=== PATIENT | male | born 2000 | race Caucasian/White ===

== ENCOUNTER 2021-08-01 17:59 | Inpatient (IN) ==
[2021-08-01] MEDS ORDERED: SODIUM CHLORIDE 0.9% 1000ML 1,000 ML IV ONE (18:39)
[2021-08-01] MEDS ORDERED: ASPIRIN CHEW 324 MG PO STA (18:39)
--- NOTE | 2021-08-01 18:39 | Emergency Department Note ---
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 This was followed by an unroofing procedure and an ICD placed who presents to the ER for feeling palpitations in his chest while exercising. Just prior to this he felt his heart beating weird. He denies any headache or change in vision. No chest pain or shortness of breath currently. Chest pain abated after he felt the palpitations and then a shock in his chest. no belly pain, nausea, vomiting, or diarrhea. No dysuria, urgency, or frequency. He does have a [employer] device in place. ROS: See above HPI for pertinent positives & negatives. A total of 10 systems reviewed and were otherwise negative. PAST MEDICAL HISTORY:See Below PAST SURGICAL HISTORY:See Below FAMILY HISTORY:See Below SOCIAL HISTORY:See Below HOME MEDICATIONS:See Below ALLERGIES:See Below VITALS:See Below PHYSICAL EXAMINATION: GENERAL: Sitting up in bed, alert, well appearing, well nourished, no distress, non-toxic EYE EXAM: normal conjunctiva. PERRL and EOM's grossly intact. OROPHARYNX: no exudate, no erythema, lips, buccal mucosa, and tongue normal and mucous membranes are moist NECK: supple, no nuchal rigidity, no adenopathy, non-tender LUNGS: Clear to auscultation. Normal chest wall mechanics HEART: no murmurs, S1 normal and S2 normal ABDOMEN: abdomen soft, non-tender, normo-active bowel sounds, no masses, no rebound or guarding. UPPER EXTREMITIES: upper extremities are grossly normal. LOWER EXTREMITIES: No pitting edema. NEURO EXAM: Normal sensorium, cranial nerves II-XII grossly intact, normal speech, no gross weakness of arms, no gross weakness of legs. MEDICAL DECISION MAKING: Patient is a 21-year-old male with extensive cardiac history including an anomalous left coronary artery with cardiac arrest, unroofing procedure, ICD placement who presents the ER for exertional palpitations followed by shock. IV was established blood work was obtained. Labs showed no significant leukocytosis or anemia. BMP along with LFTs bilirubin was unremarkable. Troponin was negative. Lipase was negative. Covid was negative. Chest x-ray was clean. EKG showed a sinus tach with nonspecific ST wave changes. Patient was given IV fluids. Heart rate trended down. Discussed with [employer]. We have no way interrogating it here as her machine for [employer] is not working. 3 people within the [employer] interrogation service are sick with Covid. There is no one close by. They will not be able to get here till least tomorrow morning. With this in his extensive cardiac history case was discussed with the hospitalist for further observation. Triage Nursing notes reviewed. Limited review of prior medical records performed Vital Signs: reviewed and remarkable for tachy Differential diagnosis: Differential diagnoses includes but is not limited to acute coronary syndrome, myocardial infarction, pericarditis, pulmonary embolus, aortic dissection, pneumonia, pneumothorax, musculoskeletal, shingles, esophageal. ER treatment provided: See below Diagnostics interpreted by me: ECG: Sinus tachycardia rate of 105 Normal axis Right bundle branch block T wave inversion V1 through V5 ST wave changes in the inferior septal anterior and lateral leads Cardiac Monitoring: An order was placed for continuous cardiac monitoring. The monitor shows a rate of 105 with sinus rhythm. Laboratory studies: As stated above and show below. Imaging studies: Chest x-ray was clean Consultation(s): none Procedures: none Critical Care: None Past Med/Surg History Surgical History (Updated 08/01/21 @ 20:12 by Lisa Hadley DO) AICD (automatic cardioverter/defibrillator) present History of open heart surgery Family History (Updated 08/01/21 @ 20:12 by Lisa Hadley DO) Other No significant family history Social History Smoking Status: Never smoker Feels Safe at Home: Yes Allergies Allergies Allergy/AdvReac Type Severity Reaction Status Date / Time azithromycin AdvReac Rash Unverified 08/01/21 18:51 chlorhexidine AdvReac Rash Unverified 08/01/21 18:51 Home Meds Home Medications Medication Instructions Recorded Confirmed ascorbic acid (vitamin C) 100 mg 0 mg PO DAILY 08/01/21 08/01/21 tablet (Vitamin C) aspirin 81 mg tablet,delayed 81 mg PO DAILY 08/01/21 08/01/21 release Results & Data (ED) Vital Signs Vital Signs - 24 hr 08/01/21 18:14 08/01/21 18:40 08/01/21 18:49 Temperature 36.6 C Temperature Source Temporal Artery Scan Pulse Rate 123 H Pulse Rate [Apical] Respiratory Rate 16 Respiratory Effort / Characteristics Non-Labored Respiratory Depth Normal Blood Pressure 138/85 Blood Pressure [Left Arm] Blood Pressure Mean 102 Blood Pressure Mean [Left Arm] Pulse Oximetry 99 Oxygen Delivery Method Room Air Room Air Room Air Sepsis Recent Fever Within 48 Hours No Sepsis New/Unexplained Change in Mental Status No Sepsis Action Taken by Nursing No Action Required 08/01/21 19:00 08/01/21 20:00 Temperature Temperature Source Pulse Rate Pulse Rate [Apical] 88 91 H Respiratory Rate 16 16 Respiratory Effort / Characteristics Non-Labored Spontaneous Non-Labored Spontaneous Respiratory Depth Normal Normal Blood Pressure Blood Pressure [Left Arm] 130/92 132/86 Blood Pressure Mean Blood Pressure Mean [Left Arm] 104 101 Pulse Oximetry 100 99 Oxygen Delivery Method Room Air Room Air Sepsis Recent Fever Within 48 Hours Sepsis New/Unexplained Change in Mental Status Sepsis Action Taken by Nursing Laboratory Data Result diagrams: 08/01/21 18:25 08/01/21 18:25 Lab Results 08/01/21 08/01/21 08/01/21 Range/Units 18:25 18:25 19:11 WBC 9.07 (4.8-10.8) K/uL RBC 5.41 (4.7-6.1) M/uL Hgb 16.2 (14.0-18.0) g/dL Hct 46.6 (42-52) % MCV 86.1 (80-100) fL MCH 29.9 (25-34) pg MCHC 34.8 (32-36) g/dL RDW Std Deviation 40.1 (36.4-46.3) fL RDW Coeff of Dao 12.6 (11.5-14.5) % Plt Count 231 (130-400) K/uL MPV 10.9 H (7.4-10.4) fL Immature Gran % (Auto) 0.2 % Neut % (Auto) 68.0 % Lymph % (Auto) 23.3 % [place] % (Auto) 6.3 % Eos % (Auto) 2.0 % Baso % (Auto) 0.2 % Neut # (Auto) 6.17 (1.4-6.5) K/uL Lymph # (Auto) 2.11 (1.2-3.4) K/uL [place] # (Auto) 0.57 (0.11-0.59) K/uL Eos # (Auto) 0.18 (0-0.5) K/uL Baso # (Auto) 0.02 (0-0.2) K/uL Immature Gran # (Auto) 0.02 (0.00-0.02) K/uL Sodium 139 (136-145) mmol/L Potassium 3.5 (3.5-5.1) mmol/L Chloride 106 (98-107) mmol/L Carbon Dioxide 27 (21-32) mmol/L Anion Gap 6.0 (3-11) BUN 12 (7-18) mg/dl Creatinine 1.18 (0.6-1.4) mg/dl Est Cr Clr Drug Dosing 94.6 ml/min Est GFR ( Amer) 102.3 ml/min Est GFR (Non-Af Amer) 88.3 ml/min BUN/Creatinine Ratio 9.9 L (10-20) Glucose 116 H (70-99) mg/dl Calcium 9.3 (8.5-10.1) mg/dl Total Bilirubin 0.5 (0.2-1) mg/dl AST 33 (15-37) U/L ALT 44 (12-78) Alkaline Phosphatase 85 (45-117) U/L Troponin I < 0.015 (0-0.045) ng/ml Total Protein 8.1 (6.4-8.2) gm/dl Albumin 4.4 (3.4-5.0) gm/dl Globulin 3.7 (2.5-4.0) gm/dl Albumin/Globulin Ratio 1.2 (0.9-2) Lipase 142 (73-393) U/L SARS-CoV-2, RNA, NAAT NEGATIVE (NEGATIVE) Administered Medications Discontinued Medications Aspirin (Aspirin Chew 324 Mg) 324 mg PO NOW STA Stop: 08/01/21 18:40 Last Admin: 08/01/21 18:49 Dose: 324 mg Documented by: [id number] Sodium Chloride (Nss 1000ml) 1,000 mls @ 999 mls/hr IV .Q1H1M ONE Stop: 08/01/21 19:39 Last Infusion: 08/01/21 19:59 Dose: 0 mls/hr Documented by: [id number] Admin: 08/01/21 18:49 Dose: 999 mls/hr Documented by: [id number] Imaging Data Radiologist's Impression: Chest X-Ray 08/01/21 18:35 XR chest 1V portable HISTORY: Atypical Chest Pain COMPARISON: None. FINDINGS: The heart is normal in size. There are poststernotomy changes and a left-sided external pacemaker. No pneumothorax. No pleural effusions. The lungs are clear. No evidence for pulmonary edema. No rib fractures. IMPRESSION: No acute process. ACT 112: Negative or not required by law. Electronically signed by: Alex Guy M.D. 08/01/2021 6:50 PM Discharge Plan Visit Data Chief Complaint: Cardiac Assessment Stated Complaint: [employer]IN[employer] APPLICATIONS DEVELOPER'L DEFIBRILLATOR WENT OFF-NEEDS CHECKED ED Provider: Sean Mendez Prescriptions Prescriptions: No Action aspirin 81 mg Tablet,Delayed Release (Dr/Ec) 81 mg PO DAILY RF: 0 Vitamin C 100 mg Tablet 0 mg PO DAILY RF: 0
[2021-08-01 18:46] LABS: Basophils # (auto) 0.02 K/uL (0-0.2); Basophils % (auto) 0.2 %; Eosinophils # (auto) 0.18 K/uL (0-0.5); Hematocrit (blood only) 46.6 % (42-52); Hemoglobin 16.2 g/dL (14.0-18.0); Immature Granulocytes # (auto) 0.02 K/uL (0.00-0.02); Immature Granulocytes % (auto) 0.2 %; Lymphocytes # (auto) 2.11 K/uL (1.2-3.4); Lymphocytes % (auto) 23.3 %; Mean Corpuscular Hemoglobin 29.9 pg (25-34); Mean Corpuscular Hgb Conc 34.8 g/dL (32-36); Mean Corpuscular Volume 86.1 fL (80-100); Mean Platelet Volume 10.9 fL (7.4-10.4); Monocytes # (auto) 0.57 K/uL (0.11-0.59); Monocytes % (auto) 6.3 %; Neutrophils # (auto) 6.17 K/uL (1.4-6.5); Platelet Count 231 K/uL (130-400); RDW Coefficient of Variation 12.6 % (11.5-14.5); RDW Standard Deviation 40.1 fL (36.4-46.3); Red Blood Count 5.41 M/uL (4.7-6.1); White Blood Count 9.07 K/uL (4.8-10.8)
--- NOTE | 2021-08-01 18:51 | XRay Report ---
XR chest 1V portable HISTORY: Atypical Chest Pain COMPARISON: None. FINDINGS: The heart is normal in size. There are poststernotomy changes and a left-sided external pac emaker. No pneumothorax. No pleural effusions. The lungs are clear. No evidence for pulmonary edema. No rib fractures. IMPRESSION: No acute process. ACT 112: Negative or not required by law. Electronically signed by: Alex Guy M.D. 08/01/2021 6:50 PM
[2021-08-01 18:59] LABS: Alanine Aminotransferase 44 (12-78); Albumin Level 4.4 gm/dl (3.4-5.0); Aspartate Aminotransferase 33 U/L (15-37); BUN Creatinine Ratio 9.9 (10-20); Blood Urea Nitrogen 12 mg/dl (7-18); Calcium 9.3 mg/dl (8.5-10.1); Carbon Dioxide 27 mmol/L (21-32); Chloride 106 mmol/L (98-107); Creatinine Clr Calc Pharmacy 94.6 ml/min; Est GFR (African American) 102.3 ml/min; Est GFR (Non-African American) 88.3 ml/min; Glucose 116 mg/dl (70-99); Lipase 142 U/L (73-393); Potassium 3.5 mmol/L (3.5-5.1); Sodium 139 mmol/L (136-145)
[2021-08-01 19:03] LABS: Albumin Globulin Ratio 1.2 (0.9-2); Alkaline Phosphatase 85 U/L (45-117); Bilirubin,Total 0.5 mg/dl (0.2-1); Globulin 3.7 gm/dl (2.5-4.0); Total Protein 8.1 gm/dl (6.4-8.2); Troponin I < 0.015 ng/ml (0-0.045)
--- NOTE | 2021-08-01 20:20 | History & Physical Report ---
Date of Service August 01, 2021 Assessment & Plan (1) AICD discharge: Plan: 21yo male with history of anomalous LAD s/p surgical repair, AICD in place presenting post-AICD discharge that occurred during exertion. Patient experienced palpitations immediately preceding the event. No additional complaints. EKG with suggestion of biatrial enlargement and TWI. No baseline for comparison. -Monitor on telemetry -Check Mg, TSH -Check 2D echo -Cardiology consultation appreciated - patient states he will relay results from testing performed here to his home Balance Clerk -Device interrogation- should occur tomorrow Plan: F/E/N - Heplock. Check Mg and PO4 x 1 and replete as needed, Regular diet as tolerated Ppx - Low risk for DVT Code - Full per discussion with patient Dispo - Admit to med tele History of Present Illness Chief Complaint: AICD discharge Primary Care Provider: NO PCP Abdulaziz Carlson is a 21yo male with history of cardiac arrest in the 7th grade - he was found to have anomalous left coronary artery. He had surgical repair and placement of AICD ([employer]). Patient was at the gym this afternoon running on the treadmill. He was approximately 25minutes into his workout when he felt a strange sensation in his chest followed by an AICD discharge. He did not lose consciousness, denies chest pain, dizziness. He presently has some muscle soreness in his chest, otherwise no complaints. Patient is active. He runs frequently several times per week. His workout today was no different or more strenuous than prior workouts. Does not experience exertional symptoms regularly. Patient had his surgery performed at [facility]. Patient was on a beta annette in the past - appx 5 years ago for elevated blood pressure. He presently resides in [place] and is a student at [employer] he receives his primary care and Cardiology followup when he goes home for breaks. Upon arrival to the ER he was found to be in sinus tachycardia at 123 bpm. BP 138/85. No arrhythmia noted on tele. [employer] was contacted by the ER. Unfortunately, their local representatives all have Covid-19 at this time and nobody is available to come in tonight for interrogation. Allergies Allergy/AdvReac Type Severity Reaction Status Date / Time azithromycin AdvReac Rash Unverified 08/01/21 18:51 chlorhexidine AdvReac Rash Unverified 08/01/21 18:51 Home Medications Medication Instructions Recorded Confirmed Type ascorbic acid (vitamin C) 100 mg 0 mg PO DAILY 08/01/21 08/01/21 History tablet (Vitamin C) aspirin 81 mg tablet,delayed 81 mg PO DAILY 08/01/21 08/01/21 History release Past Med/Surg History Surgical History (Updated 08/01/21 @ 20:12 by Lisa Hadley DO) AICD (automatic cardioverter/defibrillator) present History of open heart surgery Family History (Updated 08/01/21 @ 20:12 by Lisa Hadley DO) Other No significant family history Social History Smoking Status: Never smoker Feels Safe at Home: Yes Review of Systems Review of Systems: All systems reviewed & are unremarkable except as noted in HPI & below Physical Exam Physical Exam: General: patient resting comfortably, NAD, non-toxic in appearance, AA&O x 4 Skin: warm, dry, intact, no rashes or lesions HEENT: NC/AT, PERRL, EOMI, anicteric sclera, conjunctiva without injection, e xternal ear normal to inspection and nontender, nares patent, moist mucus membranes, dentition intact, no oropharyngeal lesions, neck supple, trachea midline, no LAD, no thyromegaly, no JVD Heart: +S1/S2, regular, no m/r/g, AICD in place left lateral chest Lungs: equal air entry bilaterally, no rales/rhonchi/wheezes Abd: +BS, soft, NT/ND, no masses/organomegaly/ascites Ext: warm, 2+ pulses in UE/LE bilaterally, no clubbing/cyanosis or edema Neuro: nonfocal, patient AA&O x 4, speech intact, no facial droop, moving all extremities on command with equal strength 5/5 Results & Data Results & Data ([facility]) Vital Signs (Past 12 Hours) Vital Signs Temp Pulse Pulse Resp BP BP Pulse Ox 08/01/21 19:00 88 16 130/92 100 08/01/21 18:14 36.6 C 123 H 16 138/85 99 Laboratory Results Laboratory Results WBC 9.07 K/uL (4.8-10.8) 08/01/21 18:25 RBC 5.41 M/uL (4.7-6.1) 08/01/21 18:25 Hgb 16.2 g/dL (14.0-18.0) 08/01/21 18:25 Hct 46.6 % (42-52) 08/01/21 18:25 MCV 86.1 fL (80-100) 08/01/21 18:25 MCH 29.9 pg (25-34) 08/01/21 18: MCHC 34.8 g/dL (32-36) 08/01/21 18:25 RDW Std Deviation 40.1 fL (36.4-46.3) 08/01/21 18:25 RDW Coeff of Dao 12.6 % (11.5-14.5) 08/01/21 18: Plt Count 231 K/uL (130-400) 08/01/21 18: MPV 10.9 fL (7.4-10.4) H 08/01/21 18:25 Immature Gran % (Auto) 0.2 % 08/01/21 18:25 Neut % (Auto) 68.0 % 08/01/21 18:25 Lymph % (Auto) 23.3 % 08/01/21 18:25 [place] % (Auto) 6.3 % 08/01/21 18:25 Eos % (Auto) 2.0 % 08/01/21 18:25 Baso % (Auto) 0.2 % 08/01/21 18:25 Neut # (Auto) 6.17 K/uL (1.4-6.5) 08/01/21 18:25 Lymph # (Auto) 2.11 K/uL (1.2-3.4) 08/01/21 18:25 [place] # (Auto) 0.57 K/uL (0.11-0.59) 08/01/21 18:25 Eos # (Auto) 0.18 K/uL (0-0.5) 08/01/21 18:25 Baso # (Auto) 0.02 K/uL (0-0.2) 08/01/21 18:25 Immature Gran # (Auto) 0.02 K/uL (0.00-0.02) 08/01/21 18:25 Sodium 139 mmol/L (136-145) 08/01/21 18:25 Potassium 3.5 mmol/L (3.5-5.1) 08/01/21 18:25 Chloride 106 mmol/L (98-107) 08/01/21 18:25 Carbon Dioxide 27 mmol/L (21-32) 08/01/21 18:25 Anion Gap 6.0 (3-11) 08/01/21 18:25 BUN 12 mg/dl (7-18) 08/01/21 18:25 Creatinine 1.18 mg/dl (0.6-1.4) 08/01/21 18:25 Est Cr Clr Drug Dosing 94.6 ml/min 08/01/21 18:25 Est GFR ( Amer) 102.3 ml/min 08/01/21 18:25 Est GFR (Non-Af Amer) 88.3 ml/min 08/01/21 18:25 BUN/Creatinine Ratio 9.9 (10-20) L 08/01/21 18:25 Glucose 116 mg/dl (70-99) H 08/01/21 18:25 Calcium 9.3 mg/dl (8.5-10.1) 08/01/21 18:25 Total Bilirubin 0.5 mg/dl (0.2-1) 08/01/21 18:25 AST 33 U/L (15-37) 08/01/21 18:25 ALT 44 (12-78) 08/01/21 18:25 Alkaline Phosphatase 85 U/L (45-117) 08/01/21 18:25 Troponin I < 0.015 ng/ml (0-0.045) 08/01/21 18:25 Total Protein 8.1 gm/dl (6.4-8.2) 08/01/21 18:25 Albumin 4.4 gm/dl (3.4-5.0) 08/01/21 18:25 Globulin 3.7 gm/dl (2.5-4.0) 08/01/21 18:25 Albumin/Globulin Ratio 1.2 (0.9-2) 08/01/21 18:25 Lipase 142 U/L (73-393) 08/01/21 18:25 SARS-CoV-2, RNA, NAAT NEGATIVE (NEGATIVE) 08/01/21 19:11 Impressions Chest X-Ray 08/01/21 18:35 XR chest 1V portable HISTORY: Atypical Chest Pain COMPARISON: None. FINDINGS: The heart is normal in size. There are poststernotomy changes and a left-sided external pacemaker. No pneumothorax. No pleural effusions. The lungs are clear. No evidence for pulmonary edema. No rib fractures. IMPRESSION: No acute process. ACT 112: Negative or not required by law. Electronically signed by: Alex Guy M.D. 08/01/2021 6:50 PM ECG Additional Comments: EKG with sinus tachycardia at 105bpm, normal axis, IY=369, QRS=88. LDp=789, biatrial enlargement suggested, TW abnormality in anterior leads Code Status & VTE Plan VTE Prophylaxis Plan VTE Prophylaxis will be ordered: Yes PG Care Time/CCT Total # of Minutes Spent Total Time Spent with Patient: Total time spent is greater than 50% in coordination of care (as documented) at patient's floor/unit and/or counseling patient: Coding Level of Care Code 06686 Initial Inpt Care Lvl 2 Diagnoses AICD discharge Z45.02
[2021-08-02] MEDS ORDERED: ACETAMINOPHEN 325 MG TAB PO PRN (03:10)
[2021-08-02] MEDS ORDERED: ONDANSETRON INJ 2 MG/ML 2 ML VIAL IV PRN (03:10)
[2021-08-02 04:32] LABS: Magnesium 2.2 mg/dl (1.8-2.4); Phosphorus 3.2 mg/dl (2.5-4.9)
[2021-08-02] MEDS ORDERED: ASPIRIN 81 MG ECTAB PO SCH (09:00)
--- NOTE | 2021-08-02 10:35 | Cardiology Consultation ---
Date of Consultation August 02, 2021 Assessment & Plan (1) AICD discharge: (2) Paroxysmal atrial fibrillation: 1. ICD shock: It appears that his ICD shock was due to a rapid rate during atrial fibrillation which was probably in part due to running at the time. The device worked correctly based on his programming, this is the only shock he has had and although it was inappropriate I have not reprogram the device. 2. Atrial fibrillation: He appears to have paroxysmal atrial fibrillation, based on his history (although vague) it sounds as though he has similar symptoms to what preceded his ICD shock in the past. He may have paroxysmal atrial fibrillation. He has not received a shock before, this was probably due to a high heart rate due to running when he had the arrhythmia. He is not going to run or do any strenuous activities until he is evaluated by his industrial renderer in [place]. 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 He tells me that he has not had an ICD shock in the past, yesterday he was running and felt a funny sensation in his chest followed by an ICD shock. He did not have presyncope or syncope. He came into the emergency room, has felt well since. ICD interrogation was performed this morning and it indicates an episode of what appears to be atrial fibrillation with a rapid heart rate resulting in an ICD shock. The device is working properly to detect the arrhythmia, although reprogramming might be in order. To his knowledge he does not have a history of atrial fibrillation although his history is a little bit vague and that it sounds as though he does have similar symptoms but did not have ICD shocks in the past. Evidently he has been in contact with his industrial renderer in [place] and plans to see them in a week or 2 when he is home for [place]. He does not have a local industrial renderer. Allergies Allergy/AdvReac Type Severity Reaction Status Date / Time azithromycin AdvReac Rash Unverified 08/01/21 18:51 chlorhexidine AdvReac Rash Unverified 08/01/21 18:51 Home Medications Medication Instructions Recorded Confirmed Type ascorbic acid (vitamin C) 100 mg 0 mg PO DAILY 08/01/21 08/01/21 History tablet (Vitamin C) aspirin 81 mg tablet,delayed 81 mg PO DAILY 08/01/21 08/01/21 History release Patient History Surgical History AICD (automatic cardioverter/defibrillator) present History of open heart surgery Family History Other No significant family history Social History Smoking Status: Never smoker Hx Alcohol Use: No Hx Substance Use: No Preferred Language: Irish Communication Ability: Effective Hydramatic Mechanic Required: No Beliefs That Will Affect Care: None Current Living Situation: Other Current Living Situation Comment: Lives with a room mate Feels Safe at Home: Yes Assistive Devices: Contacts Physical Exam Physical Exam: Constitutional: Alert, cooperative and in no distress. HEENT: Unremarkable Neck: No jugular venous distention, carotid pulses are normal and equal bilaterally without bruits. Pulmonary: Clear to auscultation bilaterally. Cardiac: Regular rhythm with no murmur, gallop or rub. Abdomen: Soft, nontender with normal bowel sounds. Extremities: No edema. Distal pulses intact. Neurologic: No focal findings. Gait is steady. Skin: The device site is well-healed without erythema, swelling or tenderness. No rash, ecchymoses or petechiae. Results & Data ([facility]) Vital Signs (Past 12 Hours) Vital Signs Temp Pulse Resp BP Pulse Ox 08/02/21 07:49 36.7 C 73 18 118/54 L 97 08/02/21 06:12 63 16 97/67 L 96 08/02/21 03:54 36.8 C 67 17 112/53 L 98 08/02/21 02:00 73 16 110/62 99 08/02/21 00:50 68 16 121/61 96 08/02/21 00:00 67 16 124/57 L 96 Laboratory Results Cardiac Enzymes 08/01/21 Range/Units 18:25 AST 33 (15-37) U/L Troponin I < 0.015 (0-0.045) ng/ml CBC 08/01/21 Range/Units 18:25 WBC 9.07 (4.8-10.8) K/uL RBC 5.41 (4.7-6.1) M/uL Hgb 16.2 (14.0-18.0) g/dL Hct 46.6 (42-52) % Plt Count 231 (130-400) K/uL Neut # (Auto) 6.17 (1.4-6.5) K/uL Lymph # (Auto) 2.11 (1.2-3.4) K/uL [place] # (Auto) 0.57 (0.11-0.59) K/uL Eos # (Auto) 0.18 (0-0.5) K/uL Baso # (Auto) 0.02 (0-0.2) K/uL Comprehensive Metabolic Panel 08/01/21 Range/Units 18:25 Sodium 139 (136-145) mmol/L Potassium 3.5 (3.5-5.1) mmol/L Chloride 106 (98-107) mmol/L Carbon Dioxide 27 (21-32) mmol/L BUN 12 (7-18) mg/dl Creatinine 1.18 (0.6-1.4) mg/dl Glucose 116 H (70-99) mg/dl Calcium 9.3 (8.5-10.1) mg/dl AST 33 (15-37) U/L ALT 44 (12-78) Alkaline Phosphatase 85 (45-117) U/L Total Protein 8.1 (6.4-8.2) gm/dl Albumin 4.4 (3.4-5.0) gm/dl Intake and Output 08/01/21 08/02/21 08/02/21 22:59 06:59 14:59 Intake Total 1000 / 1000 Balance 1000 / 1000 Intake: IV 1000 / 1000 Sodium Chloride 0.9% 1000ML 1, 1000 / 1000 000 ml @ 999 mls/hr IV .Q1H1M ONE Rx#:[id number] Other: Weight 67 kg 62.3 kg Weight Measurement Method Chair Scale Built in [facility] Diagnostic Findings His electrocardiogram on presentation shows sinus tachycardia 105 bpm, biatrial enlargement, incomplete right bundle branch block. PG Care Time/CCT Total # of Minutes Spent Total Time Spent with Patient: Total time spent is greater than 50% in coordination of care (as documented) at patient's floor/unit and/or counseling patient: Coding Level of Care Code 55459 Office/OBS Consult Lvl 3 Diagnoses AICD discharge Z45.02 Paroxysmal atrial fibrillation I48.0 CPT Codes Implantable Defib Single Lead Programming - 39181 ([id number])
--- NOTE | 2021-08-02 20:00 | Discharge Summary ---
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 He had surgical repair and placement of AICD ([employer]). Patient was at the gym this afternoon running on the treadmill. He was approximately 25minutes into his workout when he felt a strange sensation in his chest followed by an AICD discharge. He did not lose consciousness, denies chest pain, dizziness. He presently has some muscle soreness in his chest, otherwise no complaints. Patient is active. He runs frequently several times per week. His workout today was no different or more strenuous than prior workouts. Does not experience exertional symptoms regularly. Patient had his surgery performed at [facility]. Patient was on a beta annette in the past - appx 5 years ago for elevated blood pressure. He presently resides in [place] and is a student at [employer] he receives his primary care and Cardiology followup when he goes home for breaks. Upon arrival to the ER he was found to be in sinus tachycardia at 123 bpm. BP 138/85. No arrhythmia noted on tele. [facility] was contacted by the ER. Unfortunately, their local repr esentatives all have Covid-19 at this time and nobody is available to come in [facility] for interrogation. Principal Diagnosis aicd discharge perhaps from atrial fibrillation Discharge Exam pt did not wait to be seen by me was seen by cardiology who communicated to me he was stable for discharge Discharge Data Allergies Allergy/AdvReac Type Severity Reaction Status Date / Time azithromycin AdvReac Rash Unverified 08/01/21 18:51 chlorhexidine AdvReac Rash Unverified 08/01/21 18:51 Consultations 08/01/21 19:06 ED Decision to Admit Stat 08/02/21 03:10 Consult Cardiology Routine Hospital Course (1) AICD discharge: 21yo male with history of anomalous LAD s/p surgical repair, AICD in place presenting post-AICD discharge that occurred during exertion. Patient experienced palpitations immediately preceding the event. No additional complaints. EKG with suggestion of biatrial enlargement and TWI. No baseline for comparison. - -Cardiology consultation appreciated -deemed stable to be discharged no intervention, patient states he will relay results from testing performed here to his home [employer] -Device interrogation- possible atrial fibrillation Total Time Total Time Spent Total Time Spent (In Minutes): It required less than 30 minutes to prepare this patient for discharge Discharge Plan Discharge Items Patient Disposition: Home - Self-Care Reason For Visit: AICD DISCHARGE Discharge Diagnosis: defibrillator discharge Activity: Resume your previous activity Non-emergency contact: Primary Care Provider and [employer] Call non-emergency contact if: your symptoms worsen Follow-up/Referrals: PCP,NO [Primary Care Provider] - Diet: Regular Addtl Attending Provider Instructions: please follow up with cardiology Pending Studies at Discharge: No Stand-Alone Forms: Blink Messenger, Smoking Cessation Medications and DC Order Prescriptions: Continued aspirin 81 mg Tablet,Delayed Release (Dr/Ec) 81 mg PO DAILY RF: 0 Vitamin C 100 mg Tablet 0 mg PO DAILY RF: 0 Discharge Orders: Discharge Order (Routine); Ordered 08/02/21 Ordered By: Jorje Bowers Admission Data Admit Date/Time: 08/01/21 19:59 Attending Provider: Jorje Bowers Admit Provider: Lisa Hadley Primary Care Provider: PCP,NO Other Providers: Lisa Hadley ; Denny Hickman Other Interventions: Discharge Summary Assessment (RN) Last Done: 08/02/21 10:37 Coding Level of Care Code D/C DAY MANAGEMENT <30 MINS Diagnoses AICD discharge Z45.02
--- NOTE | 2021-08-04 19:25 | Electrocardiogram Report ---
Test Reason : Blood Pressure : / mmHG Vent. Rate : 105 BPM Atrial Rate : 105 BPM P-R Int : 142 ms QRS Dur : 088 ms QT Int : 314 ms P-R-T Axes : 077 070 041 degrees QTc Int : 415 ms Poor data quality, interpretation may be adversely affected Sinus tachycardia Biatrial enlargement t wave abnormality in anterior leads Abnormal ECG No previous ECGs available Confirmed by Denny Hickman ([id number]) on 08/04/2021 7:25:42 PM Referred By: REFERRED SELF Confirmed By:Denny Hickman
== END 2021-08-02 10:44 | disposition home or self-care (01) | DRG 310 ==
LOC: ED 17:59 → SUATTDRO 19:59 → OBSVTOIN 19:59 → EDINP 19:59 → INTOOBSV 19:59